=== PATIENT | male | born 1955 | race Caucasian/White ===

== ENCOUNTER 2016-09-04 20:28 | Inpatient (IN) | payer MEDICAID, MEDICARE ==
[~2016-09-04] VITALS: Ht 177.8 cm; Wt 84.6 kg
[~2016-09-04 20:28] MED LIST: BACTDSB PO; DIVA500T35 PO; HALO5TAB23 PO
[2016-09-04] MEDS ORDERED: BENZ1TAB10 PO (20:51)
[2016-09-04 21:01] LABS: BASOPHILS % (AUTO) 0.3 % (0.0-2.0); EOSINOPHILS % (AUTO) 0.6 % (1.0-6.0); HEMATOCRIT 50.2 % (41-53); HEMOGLOBIN 16.5 g/dL (13.5-17.5); LYMPHOCYTES # (AUTO) 3.2 K/uL (1.0-4.8); LYMPHOCYTES % (AUTO) 24.3 % (22.0-44.0); MEAN CORPUSCULAR HEMOGLOBIN 30.9 pg (26.0-34.0); MEAN CORPUSCULAR HGB CONC 32.9 G/dL (31.0-37.0); MEAN CORPUSCULAR VOLUME 94 fL (80-100); MONOCYTES # (AUTO) 0.9 K/uL (0.1-1.0); NEUTROPHILS % (AUTO) 67.8 % (40.0-70.0); PLATELET COUNT (AUTO) 328 K/uL (150-450); RED BLOOD CELL COUNT(AUTO) 5.34 MIL/uL (4.50-5.90); RED CELL DISTRIBUTION WIDTH 13.8 % (11.5-14.5); WHITE BLOOD COUNT (AUTO) 13.3 K/uL (4.5-11.0)
[2016-09-04 21:09] LABS: ANION GAP 8 mmol/L (8-16); CALCIUM, TOTAL 8.9 mg/dL (8.8-10.5); CARBON DIOXIDE 29 mmol/L (22-29); CHLORIDE 99 mmol/L (98-107); CREATININE 1.23 mg/dL (0.60-1.30); GLOMERULAR FILTR. RATE CALC 60 mL/min (>60); POTASSIUM 3.7 mmol/L (3.5-5.1); SODIUM SERUM 136 mmol/L (136-145); UREA NITROGEN, BLOOD 17 mg/dL (7-18)
[2016-09-04 21:15] LABS: ALANINE AMINOTRANSFERASE 23 U/L (12-78); ALBUMIN 4.2 g/dL (3.4-5.0); ASPARTATE AMINOTRANSFERASE 23 U/L (15-37); BILIRUBIN,TOTAL 0.5 mg/dL (0.1-1.0); TOTAL PROTEIN, SERUM 7.7 g/dL (6.4-8.2); VALPROIC ACID < 3 mcg/mL (50-100)
[2016-09-04] MEDS ORDERED: LORazepam 2 MG TABLET PO PRN (22:30)
[2016-09-04] MEDS ORDERED: HALOPERIDOL 5 MG TABLET PO PRN (22:30)
[2016-09-04] MEDS ORDERED: ZOLPIDEM TARTRATE 10 MG TABLET PO PRN (22:30)
[2016-09-05 14:10] VITALS: BP 137/86
[2016-09-05] MEDS ORDERED: ACETAMINOPHEN 325 MG TABLET PO PRN (14:45)
[2016-09-05] MEDS ORDERED: IBUPROFEN 400 MG TABLET PO PRN (14:45)
[2016-09-05 16:00] VITALS: BP 124/74
[2016-09-06 00:15] VITALS: BP 130/75
[2016-09-06 07:43] LABS: BASOPHILS # (AUTO) 0.04 K/uL (0.00-0.20); BASOPHILS % (AUTO) 0.5 % (0.0-2.0); EOSINOPHILS # (AUTO) 0.18 K/uL (0.00-0.70); EOSINOPHILS % (AUTO) 1.88 % (1.0-6.0); HEMOGLOBIN 14.7 g/dL (13.5-17.5); LYMPHOCYTES # (AUTO) 3.4 K/uL (1.0-4.8); LYMPHOCYTES % (AUTO) 35.9 % (22.0-44.0); MEAN CORPUSCULAR HEMOGLOBIN 31.3 pg (26.0-34.0); MEAN CORPUSCULAR HGB CONC 33.4 G/dL (31.0-37.0); MEAN CORPUSCULAR VOLUME 94 fL (80-100); MONOCYTES # (AUTO) 0.8 K/uL (0.1-1.0); MONOCYTES % (AUTO) 8.9 % (2.0-9.0); NEUTROPHILS % (AUTO) 52.8 % (40.0-70.0); PLATELET COUNT (AUTO) 261 K/uL (150-450); RED BLOOD CELL COUNT(AUTO) 4.69 MIL/uL (4.50-5.90); RED CELL DISTRIBUTION WIDTH 14.3 % (11.5-14.5); WHITE BLOOD COUNT (AUTO) 9.4 K/uL (4.5-11.0)
[2016-09-06 07:46] LABS: HEMOGLOBIN A1C 5.8 % (4.5-6.2)
[2016-09-06 08:04] LABS: ALANINE AMINOTRANSFERASE 19 U/L (12-78); ALBUMIN 3.2 g/dL (3.4-5.0); ANION GAP 6 mmol/L (8-16); ASPARTATE AMINOTRANSFERASE 13 U/L (15-37); BILIRUBIN,TOTAL 0.4 mg/dL (0.1-1.0); CALCIUM, TOTAL 8.1 mg/dL (8.8-10.5); CARBON DIOXIDE 29 mmol/L (22-29); CHLORIDE 108 mmol/L (98-107); CHOL/HDL RATIO 4.9 (4.2-7.3); CREATININE 0.93 mg/dL (0.60-1.30); GLOMERULAR FILTR. RATE CALC > 60 mL/min (>60); POTASSIUM 3.7 mmol/L (3.5-5.1); SODIUM SERUM 143 mmol/L (136-145); THYROID STIMULATING HORMONE 1.32 uIU/mL (0.36-3.74); TOTAL PROTEIN, SERUM 6.3 g/dL (6.4-8.2); UREA NITROGEN, BLOOD 15 mg/dL (7-18)
[2016-09-06 08:44] VITALS: BP 118/73
[2016-09-06] MEDS: ASENAPINE 10 MG SUBLINGUAL TABLET SL SCH ×2 (12:31→16:39)
[2016-09-06 16:18] VITALS: BP 116/70
[2016-09-07 07:23] VITALS: BP 125/80
[2016-09-07 08:33] VITALS: BP 119/68
[2016-09-07] MEDS: ASENAPINE 10 MG SUBLINGUAL TABLET SL SCH ×2 (08:53→16:36)
[2016-09-07 16:15] VITALS: BP 113/67
[2016-09-08 06:31] VITALS: BP 115/68
[2016-09-08 08:36] VITALS: BP 130/74
[2016-09-08] MEDS: ASENAPINE 10 MG SUBLINGUAL TABLET SL SCH ×2 (09:10→16:14)
[2016-09-08 16:42] VITALS: BP 127/75
[2016-09-09 06:50] VITALS: BP 125/80
[2016-09-09 08:40] VITALS: BP 121/79
[2016-09-09] MEDS: ASENAPINE 10 MG SUBLINGUAL TABLET SL SCH (09:31)
[2016-09-09] MEDS ORDERED: ASEN10TA8 SL (11:44)
== END 2016-09-09 14:58 | disposition home or self-care (01) | DRG 885 ==
LOC: EMS 20:29 → B2S 09-05 12:49
PROVIDERS: ADMIT Psychiatry & Neurology Child & Adolescent Psychiatry; ATTEND Psychiatry & Neurology Child & Adolescent Psychiatry
DX: F25.0 Schizoaffective disorder, bipolar type (principal); R45.851 Suicidal ideations; F23 Brief psychotic disorder; D72.829 Elevated white blood cell count, unspecified; E83.51 Hypocalcemia; F17.210 Nicotine dependence, cigarettes, uncomplicated; E88.09 Other disorders of plasma-protein metabolism, not elsewhere classified; R45.850 Homicidal ideations; Z88.8 Allergy status to other drugs, medicaments and biological substances
CPT/HCPCS: 83036; 84443; 99285; G0480